=== PATIENT | female | born 1940 | race Caucasian/White ===

== ENCOUNTER → 2016-12-28 | Outpatient (CLI) | payer MEDICARE, BC ==
[~2016-12-28] MED LIST: TOPROL XL25 MG PO
== END ==
LOC: RT 13:25
DX: R07.9 Chest pain, unspecified (principal); R00.2 Palpitations

== ENCOUNTER → 2017-02-13 | Outpatient (CLI) | payer MEDICARE, BC ==
[2017-02-13 08:54] LABS: HEMOGLOBIN 13.5 gm/dl (12.3-15.3); RED BLOOD COUNT 4.52 M/UL (4.00-5.10); WHITE BLOOD COUNT 5.1 K/UL (4.5-11.0)
[2017-02-13 09:14] LABS: BUN/CREATININE RATIO 14 (0-10)
== END ==
LOC: LAB 08:10
PROVIDERS: Internal Medicine
DX: R73.01 Impaired fasting glucose (principal); E78.5 Hyperlipidemia, unspecified; I10 Essential (primary) hypertension; M19.90 Unspecified osteoarthritis, unspecified site; Z79.899 Other long term (current) drug therapy
CPT/HCPCS: 80053; 80061; 83036; 84443; 85025

== ENCOUNTER 2017-02-22 19:22 | Emergency (ER) | payer MEDICARE, BC ==
[2017-02-22 21:47] LABS: HEMOGLOBIN 12.5 gm/dl (12.3-15.3); RED BLOOD COUNT 4.25 M/UL (4.00-5.10); WHITE BLOOD COUNT 6.2 K/UL (4.5-11.0)
== END 2017-02-22 22:15 | disposition home or self-care (01) ==
LOC: ER1 19:22
PROVIDERS: Emergency Medicine
DX: M17.11 Unilateral primary osteoarthritis, right knee (principal); R21 Rash and other nonspecific skin eruption; I10 Essential (primary) hypertension; I51.9 Heart disease, unspecified; Z79.82 Long term (current) use of aspirin; Z79.899 Other long term (current) drug therapy
CPT/HCPCS: 36415; 73564; 85025; 85610; 85730; 99283

== ENCOUNTER → 2020-11-10 | Outpatient (CLI) | payer MEDICARE, BC ==
[2020-11-10 10:05] LABS: HEMOGLOBIN 14.1 gm/dl (12.3-15.3); RED BLOOD COUNT 4.77 M/UL (4.00-5.10); WHITE BLOOD COUNT 6.9 K/UL (4.5-11.0)
[2020-11-10 10:44] LABS: BUN/CREATININE RATIO 17 (0-10)
[2020-11-11 12:13] LABS: CREATININE, URINE 79.2 mg/dL (Not Estab.)
== END ==
LOC: LAB 09:27
PROVIDERS: Internal Medicine
DX: J44.9 Chronic obstructive pulmonary disease, unspecified (principal); R53.83 Other fatigue; E55.9 Vitamin D deficiency, unspecified; E78.5 Hyperlipidemia, unspecified; I10 Essential (primary) hypertension; R73.01 Impaired fasting glucose; Z79.899 Other long term (current) drug therapy
CPT/HCPCS: 36415; 80053; 80061; 82043; 82570; 82607; 82746; 83036; 84439; 84443; 85025

== ENCOUNTER → 2020-11-18 | Outpatient (CLI) | payer MEDICARE, BC | LOC: RAD 12:52 | DX: M25.562 Pain in left knee (principal); M25.552 Pain in left hip; M25.572 Pain in left ankle and joints of left foot; M79.89 Other specified soft tissue disorders | CPT/HCPCS: 73502; 73564; 73610 ==

== ENCOUNTER → 2020-12-28 | Outpatient (CLI) | payer MEDICARE, BC | LOC: HEART 5 14:24 | DX: R00.2 Palpitations (principal) ==

== ENCOUNTER → 2021-05-09 | Outpatient (CLI) | payer MEDICARE, BC ==
[2021-05-09 10:56] LABS: HEMOGLOBIN 14.5 gm/dl (12.3-15.3); RED BLOOD COUNT 4.9 M/UL (4.00-5.10); WHITE BLOOD COUNT 5.9 K/UL (4.5-11.0)
[2021-05-09 11:04] LABS: BUN/CREATININE RATIO 15 (0-10)
[2021-05-10 11:16] LABS: CREATININE, URINE 79.3 mg/dL (Not Estab.)
== END ==
LOC: LAB 09:46
PROVIDERS: Internal Medicine
DX: E11.9 Type 2 diabetes mellitus without complications (principal); E78.5 Hyperlipidemia, unspecified; Z79.899 Other long term (current) drug therapy
CPT/HCPCS: 36415; 80053; 80061; 82043; 82570; 83036; 84439; 84443; 85025

== ENCOUNTER → 2021-05-18 | Outpatient (CLI) | payer MEDICARE, BC | LOC: RAD 14:34 | DX: M25.572 Pain in left ankle and joints of left foot (principal) | CPT/HCPCS: 73610; 73630 ==

== ENCOUNTER → 2021-12-07 | Outpatient (CLI) | payer MEDICARE, BC | LOC: RAD 12:53 | DX: M51.34 Other intervertebral disc degeneration, thoracic region (principal) | CPT/HCPCS: 72072 ==

== ENCOUNTER 2022-06-21 07:33 | Inpatient (IN) | payer MEDICARE, BC ==
[~2022-06-21] VITALS: Ht 154.9 cm; Wt 70.3 kg
[2022-06-21 07:52] LABS: HEMOGLOBIN 14.6 gm/dl (12.3-15.3); RED BLOOD COUNT 5.01 M/UL (4.00-5.10)
[2022-06-21 08:23] LABS: BUN/CREATININE RATIO 17 (0-10)
[2022-06-21] MEDS ORDERED: KLONOPIN0.5 MG PO (15:57)
[2022-06-21] MEDS ORDERED: AMLODIPINE BESYL5 MG PO (15:58)
[2022-06-21] MEDS ORDERED: AMITRIPTYLINE H10 MG PO (15:58)
[2022-06-21] MEDS ORDERED: ATROVENT HFA12.9 GM INH (15:59)
[2022-06-21] MEDS ORDERED: CRESTOR20 MG PO (15:59)
[2022-06-21] MEDS ORDERED: ASPIRIN EC81 MG PO (16:00)
[2022-06-21] MEDS ORDERED: HYDROCHLOROTHIA25 MG PO (16:00)
[2022-06-21] MEDS ORDERED: FISH OIL 1,0001 EAC1 PO (16:01)
[2022-06-21] MEDS ORDERED: CALCIUM + VITA1 EACH PO (16:01)
[2022-06-22 06:08] LABS: HEMOGLOBIN 12.8 gm/dl (12.3-15.3)
[2022-06-22 06:35] LABS: RED BLOOD COUNT 4.48 M/UL (4.00-5.10); WHITE BLOOD COUNT 4.3 K/UL (4.5-11.0)
[2022-06-22 06:52] LABS: BUN/CREATININE RATIO 31 (0-10)
[2022-06-22 14:28] LABS: CANDIDA ALBICANS Not Detected (Negative); CANDIDA KRUSEI Not Detected (Negative); CANDIDA TROPICALIS Not Detected (Negative); ESCHERICHIA COLI Not Detected (Negative); HAEMOPHILUS INFLUENZAE Not Detected (Negative); KLEBSIELLA OXYTOCA Not Detected (Negative); KLEBSIELLA PNEUMONIAE Not Detected (Negative); KPC-CARBAPENEM-RESISTANCE GENE Not Detected (Negative); PROTEUS Not Detected (Negative); PSEUDOMONAS AERUGINOSA Not Detected (Negative); SERRATIA MARCESANS Not Detected (Negative); STAPHYLOCOCCUS AUREUS Not Detected (Negative); STREP AGALACTIAE (GROUP B) Not Detected (Negative); STREP PYOGENES (GROUP A) Not Detected (Negative); STREPTOCOCCUS Not Detected (Negative); vanA/B (VANCOMYCIN RESIST GENE Not Detected (Negative)
--- NOTE | 2022-06-22 15:12 | NUR ---
CALLED DR GALEANO RELATED TO PATIENTS CONCERN RELATED TO HOME MEDICATIONS. DR. GALEANO STATED HE WOULD RECONCILE MEDICATIONS WHEN HE SEES THE PATIENT.
[2022-06-22 16:07] LABS: STAPHYLOCOCCUS DETECTED (Negative)
[2022-06-23 06:16] LABS: HEMOGLOBIN 12.8 gm/dl (12.3-15.3); RED BLOOD COUNT 4.5 M/UL (4.00-5.10)
[2022-06-23 06:24] LABS: WHITE BLOOD COUNT 9.6 K/UL (4.5-11.0)
[2022-06-23 06:47] LABS: BUN/CREATININE RATIO 37 (0-10)
[2022-06-24 05:37] LABS: HEMOGLOBIN 13.4 gm/dl (12.3-15.3); RED BLOOD COUNT 4.62 M/UL (4.00-5.10)
[2022-06-24 06:00] LABS: BUN/CREATININE RATIO 31 (0-10)
[2022-06-24 06:04] LABS: WHITE BLOOD COUNT 13.3 K/UL (4.5-11.0)
[2022-06-25 05:52] LABS: HEMOGLOBIN 13.4 gm/dl (12.3-15.3); RED BLOOD COUNT 4.69 M/UL (4.00-5.10); WHITE BLOOD COUNT 12.2 K/UL (4.5-11.0)
[2022-06-25 06:16] LABS: BUN/CREATININE RATIO 20 (0-10)
[2022-06-26 05:52] LABS: HEMOGLOBIN 13.9 gm/dl (12.3-15.3); RED BLOOD COUNT 4.71 M/UL (4.00-5.10); WHITE BLOOD COUNT 9.7 K/UL (4.5-11.0)
[2022-06-26 06:37] LABS: BUN/CREATININE RATIO 34 (0-10)
[2022-06-27 06:32] LABS: HEMOGLOBIN 13.7 gm/dl (12.3-15.3); RED BLOOD COUNT 4.74 M/UL (4.00-5.10); WHITE BLOOD COUNT 11.7 K/UL (4.5-11.0)
[2022-06-27 06:54] LABS: BUN/CREATININE RATIO 36 (0-10)
[2022-06-28 06:02] LABS: HEMOGLOBIN 13.5 gm/dl (12.3-15.3); RED BLOOD COUNT 4.71 M/UL (4.00-5.10); WHITE BLOOD COUNT 11.7 K/UL (4.5-11.0)
[2022-06-28 06:27] LABS: BUN/CREATININE RATIO 29 (0-10)
[2022-06-29 06:44] LABS: HEMOGLOBIN 14.1 gm/dl (12.3-15.3); RED BLOOD COUNT 4.95 M/UL (4.00-5.10); WHITE BLOOD COUNT 9.5 K/UL (4.5-11.0)
[2022-06-29 07:04] LABS: BUN/CREATININE RATIO 31 (0-10)
[2022-06-29] MEDS ORDERED: OMNICEF 300 MG300 MG PO (11:11)
[2022-06-29] MEDS ORDERED: BUDESONIDE0.5 MG/2 M NEB (11:11)
[2022-06-29] MEDS ORDERED: DECADRON6 MG PO (11:11)
[2022-06-29] MEDS ORDERED: DOXYCYCLINE HY100 M2 PO (11:11)
[2022-06-29] MEDS ORDERED: IPRAT-ALBUT 0.5-3 ML NEB (11:11)
[2022-06-29] MEDS ORDERED: ELIQUIS 2.5 MG2.5 MG PO (11:11)
== END 2022-06-29 18:10 | disposition home health service (06) | DRG 177 ==
LOC: ER1 07:33 → MED SURG 4 09:19 → CDU 09:19 → MED SURG 4 14:05
PROVIDERS: Emergency Medicine; Internal Medicine; Physician Assistant Medical; ADMIT Internal Medicine
PROC: 8E0ZXY6 Isolation (ICD-10-PCS; principal; 2022-06-21)
PROC: XW033E5 Introduction of Remdesivir Anti-infective into Peripheral Vein, Percutaneous Approach, New Technology Group 5 (ICD-10-PCS; 2022-06-21)
PROC: 3E0333Z Introduction of Anti-inflammatory into Peripheral Vein, Percutaneous Approach (ICD-10-PCS; 2022-06-21)
DX: U07.1 COVID-19 (principal); J12.82 Pneumonia due to coronavirus disease 2019; J96.21 Acute and chronic respiratory failure with hypoxia; J15.9 Unspecified bacterial pneumonia; J44.0 Chronic obstructive pulmonary disease with (acute) lower respiratory infection; I10 Essential (primary) hypertension; E11.9 Type 2 diabetes mellitus without complications; F41.9 Anxiety disorder, unspecified; E87.6 Hypokalemia; I25.10 Atherosclerotic heart disease of native coronary artery without angina pectoris; E78.5 Hyperlipidemia, unspecified; Z79.899 Other long term (current) drug therapy; Z95.5 Presence of coronary angioplasty implant and graft; Z88.8 Allergy status to other drugs, medicaments and biological substances; Z99.81 Dependence on supplemental oxygen; Z82.49 Family history of ischemic heart disease and other diseases of the circulatory system; Z90.49 Acquired absence of other specified parts of digestive tract; Z79.82 Long term (current) use of aspirin
CPT/HCPCS: 0240U; 36415; 36600; 71045; 71250; 80048; 80053; 81001; 82550; 82553; 82803; 82962; 83036; 83605; 83735; 83880; 84484; 85025; 85027; 86140; 87040; 87077; 87150; 87186; 93005; 93970; 94640; 94760; 94762; 96361; 96374; 97116; 97161; 97530; 99285; J0248; J0692; J1100; J7030; J7050